=== PATIENT | male | born 1940 | race Caucasian/White ===

== ENCOUNTER 2019-10-28 10:40 | Emergency (ER) | payer MEDICARE, BC ==
[~2019-10-28] VITALS: Ht 172.7 cm; Wt 88.5 kg
--- NOTE | 2019-10-28 10:55 | NUR ---
Dr. Butt at bedside for MSE
[2019-10-28] MEDS ORDERED: ACETAMINOPHEN ES 500 MG TABLET PO ONE (11:00)
[2019-10-28] MEDS ORDERED: ACETAMINOPHEN ES 500 MG TABLET ONE (11:34)
--- NOTE | 2019-10-28 12:29 | NUR ---
Patient discharged to home in stable condition. Written and verbal after care instructions given. Patient verbalizes understanding of instructions. Stressed follow up or return to ER for worsening s/s. Patient ambulating with steady gait. NAD noted. Denies any CP / Dizziness / Blurred vision
[2019-10-28 12:57] VITALS: BP 174/88
== END 2019-10-28 12:29 | disposition home or self-care (01) ==
LOC: ER 10:40
DX: S80.11XA Contusion of right lower leg, initial encounter (principal); X58.XXXA Exposure to other specified factors, initial encounter; Y92.89 Other specified places as the place of occurrence of the external cause; E78.5 Hyperlipidemia, unspecified; R03.0 Elevated blood-pressure reading, without diagnosis of hypertension
CPT/HCPCS: 73590; A4663; A9150